=== PATIENT | male | born 1960 | race Caucasian/White ===

== ENCOUNTER 2019-08-13 02:07 | Emergency (ER) | payer OTHER ==
[~2019-08-13] VITALS: Ht 162.6 cm; Wt 77.1 kg
[2019-08-13 02:12] VITALS: BP 139/95
[2019-08-13 05:03] VITALS: BP 129/88
== END 2019-08-14 00:18 | disposition home or self-care (01) ==
LOC: MED 02:07
DX: R07.89 Other chest pain (principal); V89.2XXA Person injured in unspecified motor-vehicle accident, traffic, initial encounter; Y93.89 Activity, other specified; Y92.410 Unspecified street and highway as the place of occurrence of the external cause; Y99.8 Other external cause status
CPT/HCPCS: 70450; 71045; 72125; 81002; 93005; 99284